=== PATIENT | female | born 1955 | race Caucasian/White ===

== ENCOUNTER 2016-10-22 16:47 | Emergency (ER) | payer BC | END 2016-10-22 19:12 | disposition home or self-care (01) | LOC: ER 16:47 | DX: R51 Headache (principal); N28.9 Disorder of kidney and ureter, unspecified; R60.0 Localized edema; E66.9 Obesity, unspecified; F17.200 Nicotine dependence, unspecified, uncomplicated; Z79.899 Other long term (current) drug therapy; Z88.2 Allergy status to sulfonamides; Z88.6 Allergy status to analgesic agent | CPT/HCPCS: 36415 ==